=== PATIENT | male | born 1955 | race Caucasian/White ===

== ENCOUNTER 2017-07-30 15:05 | Emergency (ER) | payer BC, OTHER ==
[~2017-07-30] VITALS: Ht 175.3 cm; Wt 79.0 kg
[~2017-07-30 15:05] MED LIST: HYDR-3965 PO; IBUP-1984 PO; LACT10SO PO
[2017-07-30] MEDS ORDERED: HYDROcodone/acetaminophen 5mg/325mg tablet PO ONE (15:15)
[2017-07-30] MEDS ORDERED: morphine 4 MG/ML inj SYRINge IV ONE (15:15)
[2017-07-30] MEDS ORDERED: ondansetron/PF 4mg/2ml inj IV ONE ×2 (15:15→17:30)
[2017-07-30] MEDS ORDERED: bacitracin 15gm ointment TP ONE (15:20)
[2017-07-30] MEDS ORDERED: LIDOcaine 1.5% w/epinephrine 1:200,000 5ml ampul IJ ONE (15:20)
[2017-07-30] MEDS ORDERED: cefazolin 1gm/NS 100mL 100 ML IV ONE (15:50)
[2017-07-30] MEDS ORDERED: ketorolac trometh. 30mg/ml inj. IV ONE (16:35)
[2017-07-30] MEDS ORDERED: CEPH250T PO (17:07)
[2017-07-30] MEDS ORDERED: HYDR-3965 PO (17:07)
[2017-07-30] MEDS ORDERED: ONDA8TAB9 PO (17:07)
[2017-07-30] MEDS ORDERED: ondansetron/PF 4mg/2ml inj ONE (17:31)
[2017-07-30 18:49] VITALS: BP 142/83
== END 2017-07-30 19:13 | disposition home or self-care (01) ==
LOC: ER 15:06
DX: S82.451B Displaced comminuted fracture of shaft of right fibula, initial encounter for open fracture type I or II (principal); I25.10 Atherosclerotic heart disease of native coronary artery without angina pectoris; Z79.899 Other long term (current) drug therapy; W19.XXXA Unspecified fall, initial encounter; Y93.89 Activity, other specified; Y92.89 Other specified places as the place of occurrence of the external cause; Y99.9 Unspecified external cause status
CPT/HCPCS: 29515; 73590; 96365; 96375; 96376; 99284; A6449; J0690; J1885; J2270; J2405; J3490; A6446

== ENCOUNTER 2017-08-06 10:12 | Outpatient (CLI) | payer OTHER ==
[2017-08-06 10:09] VITALS: BP 116/62
[~2017-08-06 10:12] MED LIST changes: +CEPH250T PO; +ONDA8TAB9 PO
== END 2017-08-06 11:00 | disposition home or self-care (01) ==
LOC: ORTHO 10:12
PROVIDERS: ATTEND Nurse Practitioner Family
DX: S82.831D Other fracture of upper and lower end of right fibula, subsequent encounter for closed fracture with routine healing (principal); I25.10 Atherosclerotic heart disease of native coronary artery without angina pectoris; X58.XXXD Exposure to other specified factors, subsequent encounter
CPT/HCPCS: 99213; A6449

== ENCOUNTER 2017-08-14 11:08 | Outpatient (CLI) | payer OTHER ==
[~2017-08-14 11:08] MED LIST changes: -CEPH250T PO
[2017-08-14 11:11] VITALS: BP 121/66
== END 2017-08-14 11:45 | disposition home or self-care (01) ==
LOC: ORTHO 11:08
PROVIDERS: ATTEND Nurse Practitioner Family
DX: S82.831E Other fracture of upper and lower end of right fibula, subsequent encounter for open fracture type I or II with routine healing (principal); I25.10 Atherosclerotic heart disease of native coronary artery without angina pectoris; X58.XXXD Exposure to other specified factors, subsequent encounter
CPT/HCPCS: 99213; A6449

== ENCOUNTER 2017-08-21 10:32 | Outpatient (CLI) | payer OTHER ==
[2017-08-21 10:45] VITALS: BP 125/72
== END 2017-08-21 11:00 | disposition home or self-care (01) ==
LOC: ORTHO 10:32
PROVIDERS: ATTEND Nurse Practitioner Family
DX: S82.831E Other fracture of upper and lower end of right fibula, subsequent encounter for open fracture type I or II with routine healing (principal); I25.10 Atherosclerotic heart disease of native coronary artery without angina pectoris; X58.XXXD Exposure to other specified factors, subsequent encounter
CPT/HCPCS: 99211

== ENCOUNTER 2017-09-04 10:22 | Outpatient (CLI) | payer OTHER | END 2017-09-04 11:17 | disposition home or self-care (01) | LOC: ORTHO 10:22 | PROVIDERS: ATTEND Nurse Practitioner Family | DX: S82.831E Other fracture of upper and lower end of right fibula, subsequent encounter for open fracture type I or II with routine healing (principal); I25.10 Atherosclerotic heart disease of native coronary artery without angina pectoris; X58.XXXD Exposure to other specified factors, subsequent encounter | CPT/HCPCS: 73590; 99213 ==

== ENCOUNTER 2017-09-25 10:35 | Outpatient (CLI) | payer OTHER ==
[2017-09-25 10:46] VITALS: BP 116/76
== END 2017-09-25 11:35 | disposition home or self-care (01) ==
LOC: ORTHO 10:35
PROVIDERS: ATTEND Nurse Practitioner Family
DX: S82.831E Other fracture of upper and lower end of right fibula, subsequent encounter for open fracture type I or II with routine healing (principal); I25.10 Atherosclerotic heart disease of native coronary artery without angina pectoris; X58.XXXD Exposure to other specified factors, subsequent encounter
CPT/HCPCS: 73590; 99212

== ENCOUNTER 2020-01-31 20:18 | Emergency (ER) | payer MEDICARE, OTHER ==
[~2020-01-31] VITALS: Ht 177.8 cm; Wt 84.1 kg
[2020-01-31] MEDS ORDERED: LIDOcaine 1% W/epiNEPHrine 1:200,000 10ml vial IJ ONE (20:25)
[2020-01-31] MEDS ORDERED: TETanus/Pertussis (Acell)/Diphther VAC/PF (Tdap-Adult) 0.5ml syringe IMVAC ONE (20:25)
--- NOTE | 2020-01-31 21:29 | NUR ---
ASSUMED CARE OF PT FROM YELENA ASHER, DR LANE AT BEDSIDE TO SUTURE LAC TO LEFT FOREARM
--- NOTE | 2020-01-31 22:00 | NUR ---
, DR LANE DRESSED SUTURED WOUNDS TO LEFT FOREARM WITH SURGICELL, 4X4 GUAZE, COBAN AND CHRISTIANO WRAP, TURNIQUET TO LEFT UPPER ARM REMOVED
--- NOTE | 2020-01-31 22:05 | NUR ---
GUAZE DRESSING TO INNER LEFT WRIST SATURATED WITH BLOOD, CHANGED DRESSING, APPLIED GUAZE AND COBAN PRESSURE DRESSING, DR LANE AWARE
--- NOTE | 2020-01-31 22:15 | NUR ---
DR LANE AT BEDSIDE TO SUTURE WOUND TO LEFT SIDE OF HEAD, PT IS COOPERATIVE AT THIS TIME, DOES NOT RECALL INCIDENT OR WHAT HAPPENED, DRESSINGS TO LEFT ARM AND DRY AND INTACT, PT SAID HE IS NOT ABLE TO FEEL HIS FINGERS, VERY WEAK CLINICAL WRITER, UNABLE TO STRAIGHTEN FINGERS
--- NOTE | 2020-01-31 22:28 | NUR ---
CHRISTIANO WRAP REMOVED PER DR LANE, NO BLEEDING NOTED,WILL CONTINUE TO MONITOR PT
[2020-01-31] MEDS ORDERED: magnesium oxide 400mg tablet PO ONE (22:50)
[2020-01-31] MEDS ORDERED: thiamine 100mg tablet PO ONE (22:50)
[2020-01-31] MEDS ORDERED: normal saline 1000ML IV soln IVB ONE (22:50)
[2020-01-31] MEDS: ceFAZolin 1000mg inj IV ONE ×2 (22:50→23:43)
[2020-01-31] MEDS ORDERED: phenobarbital inj 260 MG in normal saline 100ml IV soln 100 ML IV ONE (22:50)
[2020-01-31] MEDS ORDERED: cefazolin/dext.iso 2gm/50ml 50 ML IV ONE (22:55)
[2020-01-31] MEDS ORDERED: CEPH-572 PO (23:30)
[2020-02-01] LABS: BASOPHILS # (AUTO) 0.1 X10'3 (0-0.2); BASOPHILS % (AUTO) 1.2 % (0-1); EOSINOPHILS % (AUTO) 0.1 % (0-6); HEMATOCRIT 37.6 % (42.0-52.0); HEMOGLOBIN 13.1 g/dl (14.0-17.9); LYMPHOCYTES # (AUTO) 0.8 X10'3 (1.1-4.8); LYMPHOCYTES % (AUTO) 11.9 % (21-51); MEAN CORPUSCULAR HEMOGLOBIN 38.5 PG (27.0-31.0); MEAN CORPUSCULAR HGB CONC 34.7 g/dL (33.0-36.5); MEAN PLATELET VOLUME 9.1 FL (7.4-10.4); MONOCYTES # (AUTO) 0.3 X10'3 (0-0.9); MONOCYTES % (AUTO) 4.9 % (2-12); NEUTROPHILS # (AUTO) 5.2 X10'3 (1.8-7.7); NEUTROPHILS % (AUTO) 81.9 % (42-75); PLATELET COUNT 166 X10'3 (140-440); RED BLOOD COUNT 3.39 X10'6 (4.70-6.10); RED CELL DISTRIBUTION WIDTH 13.4 % (11.5-14.5); WHITE BLOOD COUNT 6.3 X10'3 (4.5-11.0)
--- NOTE | 2020-02-01 | NUR ---
PT FELL ATTEMPTING TO GET OUT OF BED, SAID HE NEEDED TO PEE. MD AWARE, VSS, ORDERES RECEIVED, WILL CONTINUE TO MONITOR
[2020-02-01 00:02] LABS: ALANINE AMINOTRANSFERASE 63 U/L (12-78); ALBUMIN 3.4 G/DL (3.4-5.0); ALBUMIN/GLOBULIN RATIO 0.9 (1.1-1.5); ALKALINE PHOSPHATASE 65 IU/L (46-116); ANION GAP 12 (8-16); ASPARTATE AMINO TRANSFERASE 113 U/L (10-37); BILIRUBIN,TOTAL 0.4 MG/DL (0.1-1.0); BLOOD UREA NITROGEN 8 MG/DL (7-18); BUN/CREATININE RATIO 13.3 (5.4-32.0); CALCIUM 8.3 MG/DL (8.5-10.1); CHLORIDE 102 MMOL/L (99-107); ETHANOL 0.207 GM/DL (0.0-0.010); GLUCOSE 95 MG/DL (70-104); POTASSIUM 3.9 MMOL/L (3.5-5.1); SODIUM 134 MMOL/L (135-145); TOTAL CARBON DIOXIDE 20.4 MMOL/L (24-32); TOTAL PROTEIN 7.4 G/DL (6.4-8.2); eGFR > 90 ML/MIN
[2020-02-01] MEDS ORDERED: NO HOME MEDS (00:38)
--- NOTE | 2020-02-01 02:00 | NUR ---
patient in bed eyes closed covers on rr even un labored no observable s/s of acute stress at this time will continue to monitor
--- NOTE | 2020-02-01 03:44 | NUR ---
patient in bed lying on right side covers on eyes closed rr even un labored no observable s/s of acute stress or complications from fall earlier this evenine view occurens report
--- NOTE | 2020-02-01 05:03 | NUR ---
PATIENT IN BED SUPINE WITH BLANKETS ON EYES CLOSED RR EVEN UN LABORED NO OBSERVABLE BLEEDING OBSERVED LUE DISTAL CSM INTACT WILL CONTINUE TO MONITOR
[2020-02-01 09:09] VITALS: BP 145/85
== END 2020-02-01 09:33 | disposition home or self-care (01) ==
LOC: ER 20:19
DX: S01.81XA Laceration without foreign body of other part of head, initial encounter (principal); S51.812A Laceration without foreign body of left forearm, initial encounter; S06.0X0A Concussion without loss of consciousness, initial encounter; F10.129 Alcohol abuse with intoxication, unspecified; I25.10 Atherosclerotic heart disease of native coronary artery without angina pectoris; Z72.89 Other problems related to lifestyle; W01.0XXA Fall on same level from slipping, tripping and stumbling without subsequent striking against object, initial encounter; Y93.89 Activity, other specified; Y92.89 Other specified places as the place of occurrence of the external cause; Y99.8 Other external cause status; Y90.9 Presence of alcohol in blood, level not specified
CPT/HCPCS: 12006; 12013; 36415; 70450; 70486; 72125; 73090; 80053; 80320; 82948; 83735; 85025; 96365; 96366; 96368; 99285; J0690; J7030; 90715

== ENCOUNTER 2020-02-01 20:24 | Emergency (ER) | payer MEDICARE ==
[~2020-02-01] VITALS: Ht 177.8 cm; Wt 60.0 kg
[~2020-02-01 20:24] MED LIST changes: +CEPH-572 PO; +NO HOME MEDS
[2020-02-01 20:42] VITALS: BP 104/71
== END 2020-02-01 20:52 | disposition home or self-care (01) ==
LOC: ER 20:25
DX: F10.129 Alcohol abuse with intoxication, unspecified (principal); I25.10 Atherosclerotic heart disease of native coronary artery without angina pectoris; Z72.89 Other problems related to lifestyle; V89.2XXA Person injured in unspecified motor-vehicle accident, traffic, initial encounter; Y93.89 Activity, other specified; Y92.89 Other specified places as the place of occurrence of the external cause; Y99.8 Other external cause status
CPT/HCPCS: 99284